=== PATIENT | female | born 1985 | race Caucasian/White ===

== ENCOUNTER 2021-03-22 17:47 | Emergency (ER) | payer OTHER ==
[2021-03-22 18:22] VITALS: BP 126/84; PULSE 92; TEMP 98; BMI 35.6
[2021-03-22] MEDS ORDERED: METOCLOPRAMIDE HCL INJECTION 10 MG/2 ML VIAL IVPB ONE (19:20)
[2021-03-22] MEDS ORDERED: KETOROLAC TROMETHAMINE 60 MG/2 ML VIAL IVPUSH ONE (19:20)
[2021-03-22] MEDS ORDERED: SODIUM CHLORIDE 1,000 ML IV STA (19:20)
[2021-03-22] MEDS ORDERED: METOCLOPRAMIDE HCL INJECTION 10 MG/2 ML VIAL ONE (19:30)
[2021-03-22] MEDS ORDERED: KETOROLAC TROMETHAMINE 30 MG/1 ML VIAL ONE (19:31)
== END 2021-03-22 20:41 | disposition home or self-care (01) ==
LOC: JER 17:47
PROC: 3E033GC Introduction of Other Therapeutic Substance into Peripheral Vein, Percutaneous Approach (ICD-10-PCS; principal; 2021-03-22)
DX: R51.9 Headache, unspecified (principal)
CPT/HCPCS: 99284-25; C9803; U0003; U0005